=== PATIENT | male | born 1985 | race Two or more races ===

== ENCOUNTER 2020-01-04 10:46 | Emergency (ER) | payer MEDICAID ==
[~2020-01-04] VITALS: Ht 182.9 cm; Wt 91.0 kg
[2020-01-04] MEDS ORDERED: TRAMADOL 50MG TABLET PO ONE (15:00)
[2020-01-04 15:01] VITALS: BP 141/87
== END 2020-01-04 18:50 | disposition home or self-care (01) ==
LOC: ER 11:05
DX: R51 Headache (principal); M79.18 Myalgia, other site; R03.0 Elevated blood-pressure reading, without diagnosis of hypertension
CPT/HCPCS: 87426; 87635; 99284